=== PATIENT | female | born 2000 | race Caucasian/White ===

== ENCOUNTER 2019-09-24 17:14 | Emergency (ER) | payer MEDICAID, SELFPAY ==
--- NOTE | ~2019-09-24 | XR_ITS ---
EXAMINATION: [id number] DATE: 09/24/2019 17:58 INDICATION: Anterior mid right rib pain post fall TECHNIQUE: A frontal inspiratory view of the chest and 3 views of the right ribs were obtained. COMPARISON: Chest radiograph dated 03/30/19 FINDINGS: No rib fractures identified. No pneumothorax. No focal infiltrates, pleural effusion or pulmonary mini ma. Cardiomediastinal silhouette is normal. IMPRESSION: 1. No rib fracture or acute cardiopulmonary disease. Reviewed, dictated and finalized at location A. WAY RADIO TECHNICIAN
--- NOTE | ~2019-09-24 | XR_ITS ---
EXAMINATION: XR shoulder RT min 2V DATE: 09/24/2019 17:58 INDICATION: Right shoulder pain post fall TECHNIQUE: AP internally and externally rotated, AP oblique externally rotated and axillary views of the right shoulder were obtained. COMPARISON: None FINDINGS: Normal alignment. No fracture. Glenohumeral joint is normal. Acromioclavicular joint is normal. Soft tissues are unremarkable. IMPRESSION: Normal right shoulder radiographs. Reviewed, dictated and finalized at location A. OTELEGRAPHIST
[2019-09-24 17:24] VITALS: BP 119/75; PULSE 101; RESP 17; TEMP 37.4; O2SAT 97
--- NOTE | 2019-09-24 17:31 | ED.GENADULT ---
HPI - General Adult General Chief complaint: Extremity Injury, Upper Stated complaint: R RIB PAIN Time Seen by Provider: 09/24/19 17:31 Source: patient and RN notes reviewed Mode of arrival: ambulatory Limitations: no limitations History of Present Illness HPI narrative: 19-year-old female presents with complaints of right anterior and posterior shoulder pain and rib pain for 1 day. No treatment. Michelle known injuries. Denies numbness or tingling. Hurts with movement of shoulder. Denies radiating pain. No loss of mobility. No swelling. Exacerbating factor is movement. Relieving factor is rest and pain medication. The dominant hand is the RIGHT HAND. Denies dyspnea and chest pain. Denies cough. Remains active. Michelle denies being , LMP 09/21/19. Some parts of this dictation were generated by voice recognition software and may contain typographical and/or grammatical inaccuracies. Related Data Allergies Allergy/AdvReac Type Severity Reaction Status Date / Time No Known Allergies Allergy Verified 09/24/19 17:22 Review of Systems Review of Systems: Narrative: CONSTITUTIONAL: Denies fever, chills, sweats. EYES: Denies visual changes, redness, discharge. ENT: Denies rhinorrhea, congestion, sore throat, otalgia. CARDIOVASCULAR: Denies chest pain, palpitations, edema. RESPIRATORY: Denies dyspnea, wheezing, cough. GASTROINTESTINAL: Denies abdominal pain, nausea, vomiting, diarrhea. GENITOURINARY: Denies dysuria, hematuria, abnormal discharge. SKIN: Denies rash or itching. MUSCULOSKELETAL: Denies acute back pain or myalgia. Complains of RT anterior and posterior shoulder pain. Right anterior rib tendernss. NEUROLOGIC: Denies numbness or focal weakness. PSYCHIATRIC: Denies anxiety or depression. All other systems reviewed & are unremarkable except as noted in HPI and below. [facility] Past Medical History Medical History (Updated 09/25/19 @ 00:00 by Belinda Varghese) Anxiety Depression Polysubstance abuse Surgical History Surgical History (Updated 09/24/19 @ 17:59 by KATELYN Villarreal) No significant past surgical history Family History Family History (Updated 09/24/19 @ 18:00 by KATELYN Villarreal) Grandparent Heart disease Diabetes mellitus Grandparent Hypertension Father Hypertension Social History Social History (Updated 09/24/19 @ 18:01 by KATELYN Villarreal) Smoking status: Current some day smoker Second hand tobacco smoke exposure: Yes Alcohol intake: current Substance use: current Substance use type: marijuana Other substance usage details: Michelel says she has been into numerous drug rehab Living arrangements: with family Occupation/Education: unemployed Gender identity (if verbalized by the patient): Female Comments At time of signature, agree with nurse past medical, surgical, social, and family history. There is no relevant family history pertinent to the presenting complaint. Exam Narrative: Exam Narrative: GENERAL: This is a well-nourished, well-developed patient, in no apparent distress. Talks in full sentences and ambulates with steady gait without dyspnea. HEAD: normocephalic, atraumatic. EYES: PERRL. Sclera clear/white. Vision is grossly intact. THROAT: Mucous membranes moist, posterior pharynx clear. NECK: Neck supple, non-tender without lymphadenopathy, masses or thyromegaly. Trachea is midline. Skin intact, no swelling, no step offs, no deformity. Normal strength and sensation of UE and normal radial pulse. No enlarged nodes. No erythema. CARDIOVASCULAR: Regular rate and rhythm without murmurs, gallops, or rubs. RT anterior rib cage and upper chest wall mild-moderate reproducible tenderness. No crepitus/subq air palpable. Skin intact. No ecchymosis or lesions. No subcutaneous emphysema. RESPIRATORY: Clear to auscultation. Breath sounds equal bilaterally. No wheezes, rales, or rhonchi. GASTROINTESTINAL: Abdomen soft, non-tender, non
[2019-09-24] MEDS: IBUPROFEN 400 MG TABLET PO (17:54)
== END 2019-09-24 18:23 | disposition home or self-care (01) ==
PROVIDERS: Emergency Provider Nurse Practitioner Family
DX: S43.401A Unspecified sprain of right shoulder joint, initial encounter (principal); X58.XXXA Exposure to other specified factors, initial encounter; S20.221A Contusion of right back wall of thorax, initial encounter; F17.200 Nicotine dependence, unspecified, uncomplicated
CPT/HCPCS: 71101; 73030; 99214; A9270; G0463

== ENCOUNTER 2019-09-29 11:44 | Emergency (ER) | payer OTHER, SELFPAY ==
[2019-09-29 12:05] VITALS: BP 117/77; PULSE 74; RESP 16; TEMP 36.7; O2SAT 100
--- NOTE | 2019-09-29 13:01 | ED.GENADULT ---
HPI - General Adult General Chief complaint: Headache Stated complaint: Sore Ribs/Difficulty with memory Time Seen by Provider: 09/29/19 13:01 Source: patient and RN notes reviewed Mode of arrival: ambulatory Limitations: no limitations History of Present Illness HPI narrative: 19-year-old female presents with complaints of intermittent headache (not the worst of her life) and feeling different after smoking marijuana (smokes marijuana daily), and intermittent nausea for the past 3 days. Advil 400mg last 2 days ago with some relief. Michelle says she is concerned about having a concussion because she is not sure if she fell 5 days ago when she came in for evaluation after drinking alcoholic beverages. Increases symptoms with diarrhea and night sweats over the last 48 hours. Intermittent abdominal cramping with nausea and diarrhea, without vomiting for 2 days. Last watery diarrhea today this am and had 3-4 about this time yesterday per Michelle. No blood in stool. Exacerbating factors consist of eating and drinking. LBM this morning brown liquid stool without blood. Denies fever or chills. Denies dizziness, seizures, syncopal episodes, back pain, dysuria, and hematuria. Tolerating po intake well. Remains active. Michelle denies being , LMP 1.5 weeks ago. Some parts of this dictation were generated by voice recognition software and may contain typographical and/or grammatical inaccuracies. Related Data Allergies Allergy/AdvReac Type Severity Reaction Status Date / Time No Known Allergies Allergy Verified 09/29/19 12:14 Review of Systems Review of Systems: Narrative: CONSTITUTIONAL: Denies fever, chills. Complains of sweats. EYES: Denies visual changes, redness, discharge. ENT: Denies rhinorrhea, congestion, sore throat, otalgia. CARDIOVASCULAR: Denies chest pain, palpitations, edema. RESPIRATORY: Denies dyspnea, wheezing, cough. GASTROINTESTINAL: Denies vomiting. Complains of diarrhea, nausea, and decrease appetite, abdominal cramping. GENITOURINARY: Denies dysuria, hematuria, abnormal discharge. SKIN: Denies rash or itching. MUSCULOSKELETAL: Denies acute back pain, joint pain, or myalgia. NEUROLOGIC: Denies numbness or focal weakness. PSYCHIATRIC: Denies anxiety or depression. All systems reviewed & are unremarkable except as noted in HPI and below. [facility] Past Medical History Medical History Anxiety Depression Polysubstance abuse Surgical History Surgical History No significant past surgical history Family History Family History Grandparent Heart disease Diabetes mellitus Grandparent Hypertension Father Hypertension Social History Social History Smoking status: Current some day smoker Second hand tobacco smoke exposure: Yes Alcohol intake: current Substance use: current Substance use type: marijuana Other substance usage details: Michelle says she has been into numerous drug rehab Gender identity (if verbalized by the patient): Female Comments At time of signature, I have reviewed and agree with nursing past medical, surgical, social, and family history. Please see nursing chart for further information. There is no relevant family history pertinent to the presenting complaint. Exam Narrative: Exam Narrative: GENERAL: This is a well-nourished, well-developed patient, in no apparent distress. Talks in full sentences without deficits and ambulates with steady gait without dyspnea. HEAD: normocephalic, atraumatic. EYES: PERRL. Sclera clear/white. Vision is grossly intact. THROAT: Mucous membranes moist, posterior pharynx clear. NECK: Neck supple, non-tender without lymphadenopathy, masses or thyromegaly. CARDIOVASCULAR: Regular rate and rhythm without m
== END 2019-09-29 13:26 | disposition home or self-care (01) ==
PROVIDERS: Emergency Provider Nurse Practitioner Family
DX: K52.9 Noninfective gastroenteritis and colitis, unspecified (principal); F17.200 Nicotine dependence, unspecified, uncomplicated
CPT/HCPCS: 99213; G0463

== ENCOUNTER 2019-10-10 11:25 | Emergency (ER) | payer MEDICAID, SELFPAY ==
--- NOTE | ~2019-10-10 | CT_ITS ---
EXAMINATION: CT brain wo con EXAM DATE: 10/10/2019 12:17 INDICATION: Second head injury, passed concussion. Headache nausea and vomiting. Posterior head injur y. TECHNIQUE: Spiral CT of the head was performed without contrast. Axial, coronal and sagittal images were reviewed. The dose-length product (DLP) for this examination was 605.33 mGy-cm. The exposure w as tailored according to patient size, and iterative reconstruction (ASIR) was used as additional dos e reduction technique. There is no prior study for comparison. FINDINGS: There is no acute intraparenchymal hemorrhage. No evidence of intraparenchymal brain mass lesion. No evidence of acute infarction. There is no mass effect or midline shift. The ventricles are normal in size. There are no extra-axial collections. There are no acute calvarial fractures. T he orbits are unremarkable. Soft tissue is unremarkable. The visualized sinuses and mastoid air radha ls are well aerated. IMPRESSION: 1. No acute intracranial findings. Reviewed, dictated and finalized at location A.
[2019-10-10 11:48] VITALS: BP 139/90; PULSE 108; RESP 18; TEMP 36.7; O2SAT 99
--- NOTE | 2019-10-10 13:10 | ED.HEATRA ---
HPI - Head Injury General Chief complaint: Head Injury Stated complaint: concussion Time Seen by Provider: 10/10/19 11:42 Source: patient Mode of arrival: ambulatory Limitations: no limitations History of Present Illness HPI Narrative: Patient presents with chief complaint of headache, intermittent dizziness, 3-4 episodes of vomiting. Patient states that she hit her head on the wall while being carried by a friend 2 weeks ago and was diagnosed with a concussion. Patient states 2 days ago she hit her head again on a refrigerator door while trying to retrieve something off of the floor and had a increase of headache, 3-4 episodes of vomiting, and yesterday had blurry vision. Patient does not have blurry vision at this time. Patient denies any known loss of consciousness but states that she was alone during the second incident. Patient denies any neurological deficits at this time. Patient states she is concern for head bleed due to headache and the blurry vision and vomiting yesterday. Related Data Allergies Allergy/AdvReac Type Severity Reaction Status Date / Time No Known Allergies Allergy Verified 10/10/19 13:29 Review of Systems Review of Systems: Narrative: CONSTITUTIONAL: Denies fever, chills, or sweats. EYES: Denies visual changes, redness, or discharge. ENT: Denies rhinorrhea, congestion, sore throat, or otalgia. CARDIOVASCULAR: Denies chest pain, palpitations, or edema. RESPIRATORY: Denies cough or dyspnea. GASTROINTESTINAL: Reports vomiting denies abdominal pain, nausea, or diarrhea. GENITOURINARY: Denies dysuria or hematuria. SKIN: Denies rash or itching. MUSCULOSKELETAL: Denies back pain, joint pain, or myalgia. NEUROLOGIC: Reports headache, denies numbness, dizziness, or weakness. PSYCHIATRIC: Denies anxiety or depression. [facility] Social History Social History Smoking status: Current some day smoker Second hand tobacco smoke exposure: Yes Alcohol intake: current Substance use: current Substance use type: marijuana Other substance usage details: Michelle says she has been into numerous drug rehab Gender identity (if verbalized by the patient): Female Exam Narrative: Exam Narrative: GENERAL: Well-appearing, well-nourished, and in no acute distress. HEAD: Normocephalic, atraumatic. EYES: PERRLA and EOMI. no observed visual deficits. ENT: Nares clear, no rhinorrhea or epistaxis. Mucous membranes moist. Oropharynx without tonsillar hypertrophy exudate or other lesions. Bilateral TMs pearly naranjo nonbulging. No hemotympanum. NECK: Supple. No adenopathy or masses. Normal range of motion. CHEST: Clear to auscultation. No respiratory distress. No wheezes rales or rhonchi HEART: Regular rate and rhythm. EXTREMITIES: Normal range of motion. No edema. Sensation and range of motion intact upper and lower extremities. SKIN: Warm, dry, no rash. NEURO: No focal deficits. Alert and oriented x3. No speech deficit PSYCH: Normal mood and affect. Course Vital Signs Vital signs: Vital Signs Temperature 98.1 F 10/10/19 11:48 Pulse Rate 108 H 10/10/19 11:48 Respiratory Rate 18 10/10/19 11:48 Blood Pressure 139/90 10/10/19 11:48 Pulse Oximetry 99 10/10/19 11:48 Temperature 98.1 F 10/10/19 13:35 Pulse Rate 86 10/10/19 13:35 Respiratory Rate 18 10/10/19 13:35 Blood Pressure 116/72 10/10/19 13:35 Pulse Oximetry 100 10/10/19 13:35 MDM - Head Injury MDM Narrative Medical decision making narrative: Discussed with patient here precautions and the need to follow-up with her primary care for reevaluation to make sure that her condition is resolving appropriately. Patient given a note to be off work for the next 2 days so that she may stay home and rest. Patient instructed to give herself breaks when doing tasks that require a large amount of concentration as they may trigger her concussive symptoms. Told patient that if she not
[2019-10-10 13:35] VITALS: BP 116/72; PULSE 86; RESP 18; TEMP 36.7; O2SAT 100
== END 2019-10-10 13:38 | disposition home or self-care (01) ==
PROVIDERS: Emergency Provider Family Medicine
DX: S06.0X0A Concussion without loss of consciousness, initial encounter (principal); F17.200 Nicotine dependence, unspecified, uncomplicated; W22.8XXA Striking against or struck by other objects, initial encounter
CPT/HCPCS: 70450; 99284

== ENCOUNTER 2020-03-25 10:45 | Emergency (ER) | payer SELFPAY ==
[2020-03-25 10:50] VITALS: BP 113/70; PULSE 87; RESP 18; TEMP 36.6; O2SAT 100
[2020-03-25] MEDS: ONDANSETRON INJ 4 MG/2 ML VIAL IV PUSH ×2 (11:30→13:18)
[2020-03-25] MEDS: SODIUM CHLORIDE 0.9% IV 1,000 ML 999 ML IV CONT ×2 (11:30→12:42)
[2020-03-25 11:31] LABS: Basophils Absolute Auto 0.1 K/mm3 (0.0-0.1); Basophils Percent Auto 0.5 % (0.2-1.2); Eosinophils Percent Auto 0.3 % (0-4.4); Hematocrit 42.1 % (37.0-47.0); Hemoglobin 14.1 g/dL (12.0-15.0); Immature Granulocyte Absolute 0.13 K/mm3 (0.00-0.031); Immature Granulocyte Percent A 1.2 % (0-0.5); Lymphocytes Absolute Auto 2.52 K/mm3 (0.9-3.2); Lymphocytes Percent Auto 22.4 % (18.3-44.2); Mean Corpuscular HGB Conc 33.5 g/dl (32-36); Mean Corpuscular Hemoglobin 28.7 pg (26-34); Mean Corpuscular Volume 85.7 fl (80-100); Mean Platelet Volume 9.4 fl (7.4-10.4); Monocytes Absolute Auto 0.4 K/mm3 (0.1-0.6); Monocytes Percent Auto 3.7 % (2.6-8.5); Neutrophils Absolute Auto 8.1 K/mm3 (1.3-6.7); Neutrophils Percent Auto 71.9 % (45.5-73.1); Platelet Count Result 456 k/mm3 (150-375); Red Blood Count 4.91 M/mm3 (4.2-5.4); Red Cell Distribution Width 12.8 % (11.5-14.5); White Blood Count 11.3 K/mm3 (4.5-10.0)
[2020-03-25 11:43] LABS: Alanine Aminotransferase 169 U/L (4-35); Albumin Level 5.3 g/dL (3.5-5.1); Alkaline Phosphatase 64 U/L (38-126); Anion Gap 14 mmol/L (8-16); Aspartate Amino Transferase 87 U/L (14-36); Bilirubin,Total 0.4 mg/dL (0.2-1.3); Blood Urea Nitrogen 13 mg/dL (7-17); Calcium 9.6 mg/dL (8.4-10.2); Carbon Dioxide 21 mmol/L (22-30); Chloride 107 mmol/L (98-107); Estimated CRCL calculation 107 ml/min; Estimated Glomerular Filt Rate > 60; Ethanol 33 mg/dL (<10); Glucose 144 mg/dL (65-105); Potassium 3.6 mmol/L (3.4-5.0); Sodium 142 mmol/L (137-145)
--- NOTE | 2020-03-25 12:41 | ED.ALCOHOL ---
HPI - Alcohol General Chief Complaint: Alcohol <Jez Camacho PA-C - Last Filed: 03/25/20 14:56> Stated Complaint: ETOH poisoning <Jez Camacho PA-C - Last Filed: 03/25/20 14:56> Time Seen by Provider: 03/25/20 11:01 <Jez Camacho PA-C - Last Filed: 03/25/20 14:56> Source: patient <SHARDA Lancaster Last Filed: 03/25/20 14:56> Mode of arrival: ambulatory <Jez Camacho PA-C - Last Filed: 03/25/20 14:56> Limitations: no limitations <SHARDA Lancaster Last Filed: 03/25/20 14:56> History of Present Illness HPI narrative: Patient presents with chief complaint of diffuse abdominal pain accompanied by nausea and vomiting that began this morning after the patient and her friends consumed three fourths of a handle of vodka between the 4 of them last night. Patient friend states that they often drink like this. Patient reports that she feels excessively thirsty has nausea vomiting and diffuse abdominal pain. She denies seizures her friend also denies witnessing any seizure-like activity. Patient denies a history of seizures. Patient denies any other medical history or daily medications. <Jez Camacho PA-C - Last Filed: 03/25/20 14:56> Chronic alcohol use: Yes <Jez Camacho PA-C - Last Filed: 03/25/20 14:56> Recent trauma: No <SHARDA Lancaster Last Filed: 03/25/20 14:56> Associated symptoms: nausea and vomiting <SHARDA Lancaster Last Filed: 03/25/20 14:56> Related Data Home Medications: Home Medications Medication Instructions Recorded Confirmed No Home Medications 03/25/20 03/25/20 <SHARDA Lancaster Last Filed: 03/25/20 14:56> Allergies/Adverse Reactions: Allergies Allergy/AdvReac Type Severity Reaction Status Date / Time No Known Allergies Allergy Verified 03/25/20 11:02 <SHARDA Lancaster Last Filed: 03/25/20 14:56> Review of Systems Review of Systems: Narrative: CONSTITUTIONAL: Reports excessive thirst denies fever, chills, or sweats. EYES: Denies visual changes, redness, or discharge. ENT: Denies rhinorrhea, congestion, sore throat, or otalgia. CARDIOVASCULAR: Denies chest pain, palpitations, or edema. RESPIRATORY: Denies cough or dyspnea. GASTROINTESTINAL: Reports abdominal pain, nausea, vomiting, denies diarrhea. GENITOURINARY: Denies dysuria or hematuria. SKIN: Denies rash or itching. MUSCULOSKELETAL: Denies back pain, joint pain, or myalgia. NEUROLOGIC: Denies headache, numbness, dizziness, or weakness. PSYCHIATRIC: Denies anxiety or depression. <Jez Camacho PA-C - Last Filed: 03/25/20 14:56> Exam Narrative: Exam Narrative: GENERAL: Well-appearing, well-nourished, appears slightly pale with quivering lip. Nondiaphoretic HEAD: Normocephalic, atraumatic. EYES: PERRLA and EOMI. ENT: Nares clear, no rhinorrhea or epistaxis. Mucous membranes moist. Oropharynx without tonsillar hypertrophy exudate or other lesions. Lips are dry. bilateral TMs pearly naranjo nonbulging NECK: Supple. No adenopathy or masses. No carotid bruits or JVD CHEST: Clear to auscultation. No respiratory distress. No wheezes rales or rhonchi HEART: Regular rate and rhythm. ABDOMEN: Soft, diffuse abdominal tenderness, nondistended, normal active bowel sounds. EXTREMITIES: Normal range of motion. No edema. SKIN: Warm, dry, no rash. NEURO: No focal deficits. Alert and oriented x3. PSYCH: Normal mood and affect. <SHARDA Lancaster Last Filed: 03/25/20 14:56> Course Course Emergency Course: Patient has been receiving fluids. Patient has not been seizing or showing any other signs of deterioration. Patient is awake and alert. <Jez Camacho PA-C - Last Filed: 03/25/20 14:56> Vital Signs Vital signs: Vital Signs Temperature 36.6 C 03/25/20 10:50 Pulse Rate 87 03/25/20 10:50 Respiratory Rate 18 03/25/20 10:50 Blood Pressure 113/70 03/25/20 10:50 Pulse Oximetry 100 03/25/20 10
[2020-03-25 12:58] LABS: Add Urine Microscopic? YES; Amorphous Sediment Urine Few; Appearance Urine Cloudy (Clear); Bacteria Urine Trace /hpf; Bilirubin Urine Negative (Negative); Blood Urine 1+ (Negative); Color Urine Yellow (Yellow); Glucose Urine UA Negative (Negative); Ketones Urine Trace mg/dL (Negative); Leukocyte Esterase Ur Negative LEU/UL (Negative); Mucus Urine Few /lpf; Nitrate Urine Negative (Negative); Protein Urine 1+ mg/dL (Negative); Specific Grav Ur 1.021 (1.001-1.035); Squamous Epithelial Cell Urine Rare /hpf (Few); Urobilinogen Urine Negative mg/dL (<2.0)
[2020-03-25 13:17] LABS: Amphetamine Screen Urine Negative (Negative); Barbiturate Screen Urine Negative (Negative); Benzodiazepines Screen Urine Negative (Negative); Cannabinoid Screen Urine Positive (Negative); Cocaine Screen Urine Negative (Negative); Methadone Screen Urine Negative (Negative); Opiate Screen Urine Negative (Negative); Phencyclidine Screen Urine Negative (Negative)
[2020-03-25 14:29] VITALS: BP 99/59; PULSE 79; RESP 18; O2SAT 98
--- NOTE | 2020-03-25 14:30 | PC.NURSE ---
pt states i amfeeling a lot better now. , erp made aware
[2020-03-25 15:12] VITALS: BP 96/62; PULSE 83; RESP 20; O2SAT 98
== END 2020-03-25 15:13 | disposition home or self-care (01) ==
PROVIDERS: Physician Assistant; Emergency Provider Emergency Medicine
DX: F10.920 Alcohol use, unspecified with intoxication, uncomplicated (principal); Y90.1 Blood alcohol level of 20-39 mg/100 ml
CPT/HCPCS: 36415; 80053; 80307; 81001; 81025; 85025; 96361; 96374; 96376; 99284; J2405; J7030

== ENCOUNTER 2020-12-27 11:06 | Emergency (ER) | payer OTHER, SELFPAY ==
[2020-12-27 11:16] VITALS: BP 109/67; PULSE 86; RESP 12; TEMP 36.8; O2SAT 97
--- NOTE | 2020-12-27 11:22 | ED.EYEPROB ---
HPI - Eye Problem General Chief complaint: Eye Problems Stated complaint: Lt Eye Time Seen by Provider: 12/27/20 11:30 Source: patient, RN notes reviewed and old records reviewed Mode of arrival: ambulatory Limitations: no limitations History of Present Illness HPI Narrative: 20 year old female who presents to [facility] care with complaints of itching, redness and swelling to her left eye for the past 5 days. She states that she had to use a warm washcloth to open her left eye this morning, had a lot of greenish yellow colored drainage from her left eye. Patient states that she thought she had a stye at first and used some stye cream which didn't help and she also tried some antihistamine eye drops. Patient does not wear contact lens or glasses. Patient denies any sharp pain to her left eye, states some blurry vision from left eye, denies any photophobia, Onset (ago): day(s) (5) Onset description: gradual Duration: progressively worsening Location: left eye Eye Symptoms: redness, itching, discharge and blurry vision Mechanism: none Severity: mild Severity scale (1-10): 3 If Pain, Quality: other (itchy) Associated symptoms: none Treatments Prior to Arrival: other (antihistamine eye drops) Related Data Patient tetanus UTD: Yes Allergies Allergy/AdvReac Type Severity Reaction Status Date / Time No Known Allergies Allergy Unverified 12/27/20 11:21 Review of Systems Review of Systems: Narrative: CONSTITUTIONAL: Denies fever, chills, or sweats. EYES: reports some visual blurriness,positive redness, or discharge from her left eye with some swelling of lower left eyelid and under eye ENT: Denies rhinorrhea, congestion, sore throat, or otalgia. CARDIOVASCULAR: Denies chest pain, palpitations, or edema. RESPIRATORY: Denies cough or dyspnea. GASTROINTESTINAL: Denies abdominal pain, nausea, vomiting, or diarrhea. GENITOURINARY: Denies dysuria or hematuria. SKIN: Denies rash or itching. MUSCULOSKELETAL: Denies back pain, joint pain, or myalgia. NEUROLOGIC: Denies headache, numbness, or weakness. PSYCHIATRIC: Positive history anxiety or depression. All systems reviewed & are unremarkable except as noted in HPI and below PMFSH Past Medical History Medical History (Updated 12/27/20 @ 11:46 by Dena Lau NP) Anxiety Depression Polysubstance abuse Surgical History Surgical History No significant past surgical history Family History Family History Grandparent Heart disease Diabetes mellitus Grandparent Hypertension Father Hypertension Social History Social History (Updated 12/27/20 @ 12:08 by Dena Lau NP) Smoking status: Former smoker Second hand tobacco smoke exposure: Yes Additional smoking assessment comments: states she quit using tobacco few months ago Alcohol intake: current Alcohol use details: states social Substance use: current Substance use type: marijuana Other substance usage details: Michelle says she has been into numerous drug rehab Living arrangements: with family Gender identity (if verbalized by the patient): Female Comments At time of signature, agree with nursing past medical, surgical, social and family history. There is no relevant family history pertinent to the presenting complaint Exam Narrative: Exam Narrative: GENERAL: Well-appearing, well-nourished, unkept appearance and in no acute distress. HEAD: Normocephalic, atraumatic. EYES: PERRLA and EOMI. small raised blister lesion of area to left lower eyelid inner aspect with mild swelling.Left eye conjunctiva red and irritated with drainage noted from left eye greenish yellow in color, denies any acute sharp pain to left eye, states some blurring of vision from left eye with irritation and itching of left eye. Visual acuity with no corrective lenses 20/20 bilateral eyes No redness of right eye. ENT: Nares
== END 2020-12-27 11:55 | disposition home or self-care (01) ==
PROVIDERS: Emergency Provider Registered Nurse
DX: H00.015 Hordeolum externum left lower eyelid (principal); H10.32 Unspecified acute conjunctivitis, left eye; Z87.891 Personal history of nicotine dependence
CPT/HCPCS: 99213; G0463